=== PATIENT | male | born 1990 | race African-American/Black ===

== ENCOUNTER 2020-09-13 09:02 | Emergency (ER) | payer OTHER ==
[~2020-09-13] VITALS: Ht 182.9 cm; Wt 87.0 kg
[2020-09-13] MEDS ORDERED: PREDNISONE 20MG TABLET PO ONE (09:30)
[2020-09-13 09:56] VITALS: BP 128/70
== END 2020-09-13 09:56 | disposition home or self-care (01) ==
LOC: ER 09:02
DX: L30.9 Dermatitis, unspecified (principal); J45.909 Unspecified asthma, uncomplicated; Z98.890 Other specified postprocedural states
CPT/HCPCS: 99283; J7512